=== PATIENT | female | born 1975 | race Caucasian/White ===

== ENCOUNTER 2022-09-15 18:42 | Emergency (ER) | payer OTHER, SELFPAY ==
[2022-09-15 18:50] VITALS: BP 128/82; PULSE 92; RESP 18; TEMP 36.6; O2SAT 97
--- NOTE | 2022-09-15 18:58 | ED.URI ---
HPI - URI/Sore Throat General Chief Complaint: Upper Respiratory Infection Stated Complaint: Sore Throat/Cough Source: patient and RN notes reviewed History of Present Illness HPI Narrative: 47-year-old female presents to urgent care with complaints a cough and sore throat. Patient states sore throat started on Sunday which has improved however is worsening. Patient states she believes she had a fever chills Sunday this past week. Does report some congestion. Denies any vomiting, diarrhea, chest pain, but does report some shortness of breath. Pt is a smoker. Related Data Home Medications Medication Instructions Recorded Confirmed atorvastatin 10 mg tablet 10 mg PO DIRECTED 09/15/22 09/15/22 clonazepam 1 mg tablet 1 mg PO DIRECTED 09/15/22 09/15/22 lamotrigine 200 mg tablet 200 mg PO DIRECTED 09/15/22 09/15/22 lurasidone 80 mg tablet 80 mg PO DIRECTED 09/15/22 09/15/22 trazodone 150 mg tablet 150 mg PO DIRECTED 09/15/22 09/15/22 Allergies Allergy/AdvReac Type Severity Reaction Status Date / Time No Known Allergies Allergy Verified 09/15/22 18:56 Review of Systems Review of Systems: Pertinent positives and pertinent negatives per HPI. PMFSH Comments At the time of my signature, I reviewed and agree with the nursing past medical, surgical, social, and family history. There is no relevant family history pertinent to the patient complaint. Exam Narrative: GENERAL: This is a well-nourished, well-developed patient, in no apparent distress. HEAD: normocephalic, atraumatic. EYES: Sclera clear/white. Vision is grossly intact. EARS: External ears normal, auditory canals clear and without drainage, TMs normal without perforation. Hearing grossly intact. NOSE: External nose normal with no obvious nasal discharge, nares without redness, no rhinorrhea. THROAT: Mucous membranes moist, posterior pharynx clear. NECK: Neck supple, non-tender without lymphadenopathy, masses or thyromegaly. CARDIOVASCULAR: Regular rate and rhythm without murmurs, gallops, or rubs. RESPIRATORY: Clear to auscultation. Breath sounds equal bilaterally. No wheezes, rales, or rhonchi. GASTROINTESTINAL: Abdomen soft, non-tender, nondistended. Bowel sounds are active. No hepato-splenomegaly, or palpable masses. No guarding. SKIN: warm, intact with no suspicious lesions or rash, good texture and turgor. NEURO: awake, alert, and oriented to person, place and time. There were no obvious focal neurologic abnormalities. Course Course Level of Care: Express Care Visit Vital Signs Vital signs: Vital Signs Temperature 98 F 09/15/22 18:50 Pulse Rate 92 09/15/22 18:50 Respiratory Rate 18 09/15/22 18:50 Blood Pressure 128/82 09/15/22 18:50 Pulse Oximetry 97 09/15/22 18:50 Oxygen Delivery Room Air 09/15/22 18:50 Temperature 98 F 09/15/22 18:50 Pulse Rate 92 09/15/22 18:50 Respiratory Rate 18 09/15/22 18:50 Blood Pressure 128/82 09/15/22 18:50 Pulse Oximetry 97 09/15/22 18:50 Oxygen Delivery Room Air 09/15/22 18:50 Reviewed MDM - URI/Sore Throat MDM Narrative Medical decision making narrative: Take steroids as directed. May use the inhaler every 4-6 hours as needed for coughing. Increase fluids at home. Avoid any and all smoke. May use a humidifier in the bedroom. Increase your Vitamin C. Follow-up with personal physician in 2-5 days. Differential Diagnosis Differential diagnosis: Likely upper respiratory infection, bronchitis and pharyngitis Lab Data Attestation: I reviewed the patient's lab results. Labs: Strep Screen Presumptive Negative *(Reference Range: Negative)* Critical Care Time Critical Care Time Critical Care Time: No Discharge Plan Discharge Clinical Impression: Bronchitis Patient Disposition: Home, Self-Care Condition: Stable Instructions: Acute Bronchitis (ED) Additional Instructions:
== END 2022-09-15 19:25 | disposition home or self-care (01) ==
PROVIDERS: Emergency Provider Nurse Practitioner Family; PCP Nurse Practitioner Family
DX: J40 Bronchitis, not specified as acute or chronic (principal)
CPT/HCPCS: 87081; 87880; 99213; G0463